=== PATIENT | male | born 1970 | race Hispanic/Latino ===

== ENCOUNTER → 2018-06-02 | Outpatient (REF) ==
--- NOTE | 2018-06-03 03:25 | REP ---
Clinical: Knee pain. Technique: Single AP weightbearing view of the right and left knee. Findings: Early arthritic degenerative changes include mild medial joint space narrowing (left greater than right) along with early osteophyte formation along the bilateral lateral femoral condyles and left medial tibial plateau. Impression: Early arthritic changes. Electronically Signed by Mack Canela MD 06/03/2018 03:16 A
--- NOTE | 2018-06-03 05:16 | REP ---
Clinical: Right knee pain. Technique: AP and lateral views of the right knee. Findings: Mild arthritic changes include subtle spurring along the lateral femoral condyle with increased sclerosis to the medial tibial plateau and associated mild joint space narrowing. No effusion. No acute fracture or dislocation. Impression: Mild arthritic degenerative changes. Electronically Signed by Mack Canela MD 06/03/2018 05:07 A
== END ==
LOC: M RAD 11:33
PROVIDERS: ATTEND Physician Assistant Medical
DX: Z00.00 Encounter for general adult medical examination without abnormal findings (principal)

== ENCOUNTER 2019-08-18 14:59 | Emergency (ER) | payer OTHER ==
[~2019-08-18] VITALS: Ht 170.2 cm; Wt 95.5 kg
[2019-08-18] MEDS ORDERED: fish oil (15:17)
[2019-08-18] MEDS ORDERED: GABA-843 PO (15:17)
[2019-08-18] MEDS ORDERED: GNP1000T11 PO (15:17)
--- NOTE | 2019-08-18 15:36 | REP ---
Clinical: Acute chest pain . Comparison: None . Findings: The mediastinum and cardiac silhouette are stable and within normal limits for portable technique. The lung stark are clear without acute consolidation, effusion, or pneumothorax. Skeletal structures are intact. Impression: No acute cardiopulmonary process appreciated. Electronically Signed by Mack Canela MD 08/18/2019 03:28 P
[2019-08-18 15:59] LABS: BASO # 0.1 10^3/uL (0.0-0.2); BASO % 0.6 % (0.0-1.0); EOS # 0.1 10^3/uL (0.0-0.5); EOS % 0.9 % (0.0-3.0); HEMATOCRIT 43.1 % (42.0-52.0); HEMOGLOBIN 14.9 g/dl (13.5-17.5); LYMPH # 2.2 10^3/uL (1.5-5.0); LYMPH % 27.5 % (24.0-44.0); MEAN CORPUSCULAR HEMOGLOBIN 31.7 pg (27.0-33.0); MEAN CORPUSCULAR HGB CONC 34.6 g/dl (32.0-36.5); MEAN CORPUSCULAR VOLUME 91.7 fl (80.0-96.0); MONO # 0.7 10^3/uL (0.0-0.8); MONO % 9.3 % (0.0-5.0); NEUTROPHILS # 4.9 10^3/uL (1.5-8.5); NEUTROPHILS % 61.4 % (36.0-66.0); PLATELET COUNT, AUTOMATED 234 10^3/uL (150-450)
[2019-08-18 16:31] LABS: ALBUMIN 3.7 GM/DL (3.2-5.2); ALT/SGPT 54 U/L (12-78); BILIRUBIN,DIRECT 0.2 MG/DL (0.0-0.2); BILIRUBIN,TOTAL 0.9 MG/DL (0.2-1.0); BLOOD UREA NITROGEN 15 MG/DL (7-18); CALCIUM LEVEL 9.4 MG/DL (8.5-10.1); CARBON DIOXIDE LEVEL 29 MEQ/L (21-32); CHLORIDE LEVEL 105 MEQ/L (98-107); CPK CREATINE PHOSPHOKINASE 118 U/L (39-308); CREATININE FOR GFR 0.78 MG/DL (0.70-1.30); GLOMERULAR FILTRATION RATE > 60.0 (>56); GLUCOSE, FASTING 129 MG/DL (70-100); LIPASE 133 U/L (73-393); MB/CK RELATIVE INDEX 3.39 (< OR =4); POTASSIUM SERUM 3.7 MEQ/L (3.5-5.1); SODIUM LEVEL 139 MEQ/L (136-145); TOTAL PROTEIN 7.4 GM/DL (6.4-8.2); TROPONIN I < 0.02 NG/ML (< 0.10)
[2019-08-18] MEDS ORDERED: ISOVUE-370 76% 100ML VIAL (Q9967) As Ordered ONE (16:58)
--- NOTE | 2019-08-18 17:27 | REPVR ---
PROCEDURE INFORMATION: Exam: CT Angiography Chest With Contrast Exam date and time: 08/18/2019 5:01 PM Age: 49 years old Clinical indication: Chest pain; Additional info: R/O pe TECHNIQUE: Imaging protocol: Computed tomographic angiography of the chest with intravenous contrast. 3D rendering: MIP and/or 3D reconstructed images were created by the technologist. Radiation optimization: All CT scans at this facility use at least one of these dose optimization techniques: automated exposure control; mA and/or kV adjustment per patient size (includes targeted exams where dose is matched to clinical indication); or iterative reconstruction. Contrast material: ISO 370; Contrast volume: 75 ml; Contrast route: IV; COMPARISON: CR PORTABLE CHEST X-RAY 08/18/2019 3:22 PM FINDINGS: Pulmonary arteries: No pulmonary emboli. Aorta: No aneurysmal dilatation of thoracic aorta or dissection. Lungs: No focal lung consolidation. Pleural space: No pleural effusion. Heart: Borderline cardiomegaly without pericardial effusion. Lymph nodes: No mediastinal or hilar lymphadenopathy. Bones/joints: Unremarkable. No acute fracture. Soft tissues: Unremarkable. Other findings: No significant findings in the upper abdomen. IMPRESSION: No evidence of pulmonary embolic disease, pneumonia or congestive heart failure. Electronically signed by: Corina Dale On 08/18/2019 17:27:13 PM
[2019-08-18 17:45] VITALS: BP 137/79
--- NOTE | 2019-08-18 22:32 | ECGEPIP ---
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
== END 2019-08-18 17:55 | disposition home or self-care (01) ==
LOC: M ED 14:59 → EDBD 14:59 → M ED 17:55
DX: R07.89 Other chest pain (principal); I45.89 Other specified conduction disorders; F41.9 Anxiety disorder, unspecified; F32.9 Major depressive disorder, single episode, unspecified
CPT/HCPCS: 71045; 71275; 80048; 80076; 82550; 82553; 83690; 84484; 85025; 93005; 93041; 94760; 99285; Q9967